=== PATIENT | female | born 1995 | race African-American/Black ===

== ENCOUNTER 2020-12-02 14:01 | Outpatient (REF) | payer OTHER, SELFPAY ==
[2020-12-02 17:05] LABS: Syphilis Screen Nonreactive (Nonreactive)
[2020-12-02 17:06] LABS: Thyroid Stimulating Hormone 1.02 uIU/mL (0.32-4.0)
[2020-12-03 04:37] LABS: HBc Num1 0.05 S/CO (0.00-0.79); HIV AB/AG Nonreactive (Nonreactive); HIV Num 1 0.06 S/CO (0.00-0.99); Hepatitis B Core Antibody Nonreactive (Nonreactive)
[2020-12-03 04:39] LABS: ~HepC Num1 0.07 S/CO (0.00-0.79); ~Hepatitis C Antibody Nonreactive (Nonreactive)
[2020-12-03 06:47] LABS: DHEA Sulfate 228 mcg/dL (18-391)
[2020-12-03 08:21] LABS: Prolactin 18.7 ng/mL
[2020-12-04 09:48] LABS: C. trachomatis RNA TMA NOT DETECTED (NOT DETECTED); N. gonorrhoeae RNA TMA NOT DETECTED (NOT DETECTED)
[2020-12-08 11:21] LABS: Testosterone, Free 3.1 pg/mL (0.1-6.4); Testosterone, Total 57 ng/dL (2-45)
== END 2020-12-02 14:02 | disposition home or self-care (01) ==
LOC: HO.LAB 14:01
PROVIDERS: PCP Internal Medicine; Visit Provider Advanced Practice Midwife
DX: N92.6 Irregular menstruation, unspecified (principal); E28.2 Polycystic ovarian syndrome; Z20.2 Contact with and (suspected) exposure to infections with a predominantly sexual mode of transmission; Z91.410 Personal history of adult physical and sexual abuse
CPT/HCPCS: 36415; 82627; 83498; 84146; 84402; 84403; 84443; 86704; 86780; 86803; 87389; 87491; 87591; 99202

== ENCOUNTER → 2020-12-09 14:09 | Outpatient (BNVA) | payer OTHER, SELFPAY | PROVIDERS: PCP Internal Medicine; Visit Provider Advanced Practice Midwife ==

== ENCOUNTER → 2020-12-12 12:57 | Outpatient (BNVA) | payer OTHER, SELFPAY | PROVIDERS: PCP Internal Medicine; Visit Provider Internal Medicine | DX: R79.89 Other specified abnormal findings of blood chemistry (principal); E55.9 Vitamin D deficiency, unspecified; N92.6 Irregular menstruation, unspecified | CPT/HCPCS: 99202 ==

== ENCOUNTER 2020-12-13 09:24 | Outpatient (REF) | payer OTHER, SELFPAY | END 2020-12-13 09:25 | disposition home or self-care (01) | LOC: HO.LAB 09:24 | PROVIDERS: PCP Internal Medicine; Visit Provider Internal Medicine | DX: Z13.89 Encounter for screening for other disorder (principal) ==

== ENCOUNTER 2020-12-16 07:56 | Outpatient (REF) | payer OTHER, SELFPAY ==
[2020-12-16 09:08] LABS: Glucose Fasting 82 mg/dL (60-99)
[2020-12-16 09:09] LABS: Estimated Average Glucose 97 mg/dL
[2020-12-16 09:19] LABS: Alanine Aminotransferase 22 U/L (0-31); Albumin Level 4.4 g/dL (3.5-5.0); Alkaline Phosphatase 43 U/L (39-117); Anion Gap 11 (12-20); Aspartate Amino Transferase 41 U/L (5-31); Blood Urea Nitrogen 14 mg/dL (9-16); Calcium 9.3 mg/dL (8.4-10.2); Carbon Dioxide 26 mmol/L (22-29); Chloride 104 mmol/L (96-108); Cholesterol 125 mg/dL; Estimated Glomerular Filt Rate > 60; Glucose Random 82 mg/dL (60-115); HDL Cholesterol 52 mg/dL; LDL Cholesterol Calculated 64 mg/dl; Potassium 4.2 mmol/L (3.3-5.1); Sodium 137 mmol/L (135-145); Total Protein 7.1 g/dL (6.5-8.0); Triglycerides 45 mg/dL
[2020-12-16 09:31] LABS: Free T4 (Free Thyroxine) 1.02 ng/dL (0.71-1.85); HCG Quantitative < 2 mIU/mL; Thyroid Stimulating Hormone 1.46 uIU/mL (0.32-4.0); Vitamin D 25-OH Total 20.7 ng/mL (>30)
[2020-12-16 10:07] LABS: Glucose 1 Hour 108 mg/dL
[2020-12-16 11:18] LABS: Glucose 2 Hour 86 mg/dL
[2020-12-17 16:46] LABS: Adrenocorticotropic Hormone 17 pg/mL (6-50)
[2020-12-18 14:42] LABS: LDL Cholesterol Direct 61 mg/dL (<100)
[2020-12-18 15:51] LABS: Follicle Stimulating Hormone 3.7 mIU/mL; Lutenizing Hormone 5.1 mIU/mL
[2020-12-18 17:27] LABS: DHEA Sulfate 181 mcg/dL (18-391); Sex Hormone Binding Globulin 131 nmol/L (17-124)
[2020-12-19 19:22] LABS: Estradiol Ultra Sensitive 322 pg/mL
[2020-12-19 22:12] LABS: Androstenedione 210 ng/dL
[2020-12-21 00:12] LABS: Estradiol Free 5.08 pg/mL; Estradiol, Ultrasensitive 331 pg/mL
[2020-12-21 12:31] LABS: Testosterone, Free 3.5 pg/mL (0.1-6.4); Testosterone, Total 54 ng/dL (2-45)
== END 2020-12-16 07:57 | disposition home or self-care (01) ==
LOC: HO.LAB 07:56
PROVIDERS: PCP Internal Medicine; Visit Provider Internal Medicine
DX: N92.6 Irregular menstruation, unspecified (principal); E55.9 Vitamin D deficiency, unspecified
CPT/HCPCS: 36415; 80053; 80061; 82024; 82157; 82306; 82533; 82627; 82670; 82681; 83001; 83002; 83036; 83498; 83721; 84146; 84270; 84402; 84403; 84439; 84443; 84702

== ENCOUNTER 2020-12-18 11:11 | Outpatient (REF) | payer OTHER, SELFPAY ==
--- NOTE | ~2020-12-18 | XR_ITS ---
EXAMINATION: XR HAND, RIGHT CLINICAL INFORMATION: Pain right fourth finger COMPARISON: None TECHNIQUE: PA, lateral, and oblique views of the right hand. FINDINGS: There is no acute or healing fracture, dislocation, destructive process. The bony mineralization is normal. There is no destructive process. No periostitis. No joint narrowing or erosive change. No soft tissue swelling. XR/XR hand RT min 3V IMPRESSION: Normal right hand.
== END 2020-12-18 11:12 | disposition home or self-care (01) ==
LOC: HO.HMGCX 11:11
PROVIDERS: PCP Internal Medicine; Visit Provider Nurse Practitioner Family
DX: M79.644 Pain in right finger(s) (principal); S67.194A Crushing injury of right ring finger, initial encounter; X58.XXXA Exposure to other specified factors, initial encounter; Y93.9 Activity, unspecified; Y92.9 Unspecified place or not applicable; Y99.9 Unspecified external cause status
CPT/HCPCS: 73130

== ENCOUNTER 2021-02-03 09:12 | Outpatient (REF) | payer OTHER, SELFPAY ==
--- NOTE | ~2021-02-03 | US_ITS ---
EXAMINATION: US THYROID CLINICAL INFORMATION: Nontoxic goiter, unspecified. COMPARISON: None TECHNIQUE: Linear transducer garcia-scale and color Doppler examination with attention to the region of the thyroid. FINDINGS: SIZE: Measurements of the thyroid lobes and nodules are given in sagittal, anteroposterior and transverse dimensions respectively. Right Thyroid Lobe: 5.1 x 1.4 x 1.5 cm, volume 5.9 mL. Parenchyma: The gland echotexture is homogeneous. Thyroid vascularity is increased. Left Thyroid Lobe: 4.9 x 1.2 x 1.4 cm, volume 4.3 mL. Parenchyma: The gland echotexture is homogeneous. Thyroid vascularity is increased. Isthmus: 0.2 cm in maximum AP dimension. Estimated total number of nodules greater than or equal to 1 cm: 1. Miniature Train Driver nodules are described as follows: 1. Location: Left lower pole. Size: 1.1 x 0.7 x 0.9 cm, volume 0.33 mL. Nodule characteristics: Composition: Mixed cystic and solid (1). Echogenicity: Isoechoic (1). Shape: Not taller than wide (0). Margins: Smooth (0). Echogenic Foci: Punctate echogenic foci (3). ACR TI-RADS total points: 5 ACR TI-RADS category: 4 NODES: No lymphadenopathy is seen in the tissue surrounding the thyroid gland. US/US thyroid IMPRESSION: Solitary thyroid nodule. Ultrasound follow-up as described below recommended. ACR TI-RADS RECOMMENDATION REFERENCE: Ultrasound-guided fine-needle aspiration, followup ultrasound, no further follow up. * TR1 (0 point) and TR 2 (2 points): No FNA or follow up * TR3 (3 points): FNA if more than or equal to 2.5 cm in maximum dimension, followup ultrasound in 1, 3 and 5 years if 1.5 to 2.4 cm in maximum dimension. * TR4 (4-6 points): FNA if more than or equal to 1.5 cm in maximum dimension, followup ultrasound in 1, 2, 3 and 5 years if 1 to 1.4 cm in maximum dimension. * TR5 (more than or equal to 7 points): FNA if more than or equal to 1 cm in maximum dimension, followup ultrasound every year for 5 years if 0.5 to 0.9 cm in maximum dimension. * TR3, TR4 or TR5 nodules that are below the size threshold for follow up receive no follow up.
[2021-02-03 11:46] LABS: Hematocrit 39.3 % (37-47); Hemoglobin 12.8 g/dl (12.0-16.0); Mean Corpuscular HGB Conc 32.6 g/dl (31.0-35.0); Mean Corpuscular Hemoglobin 27.9 pg (27.0-33.0); Mean Corpuscular Volume 85.8 fL (80-98); Mean Platelet Volume 11.4 fL (9.4-12.3); Platelet Count 262 X10*3/uL (160-400); Red Blood Count 4.58 X10*6/uL (4.20-5.50); Red Cell Distribution Width 11.8 % (11.0-16.0)
[2021-02-03 11:58] LABS: White Blood Count 2.3 X10*3/uL (4.8-10.8)
[2021-02-03 12:45] LABS: Atypical Lymph Absolute Manual 0.1 x10*3/uL; Atypical Lymphs Percent Manual 3 % (0-6); Band Neutrophils Percent 3 % (3-5); Lymphocytes Absolute Manual 1.2 X10*3/uL (0.6-4.8); Lymphocytes Percent Manual 51 % (20-40); Monocytes Absolute Manual 0.3 X10*3/uL (0.0-1.2); Monocytes Percent Manual 15 % (2-11); Neutrophils Absolute Manual 0.7 X10*3/uL (2.2-7.9); Neutrophils Percent Manual 28 % (45-73)
[2021-02-03 12:46] LABS: Acanthocytes 1+ (0-2) /OIF; Hypochromasia 1+ (5-14) /OIF; Platelet Estimate NORMAL (NORMAL); Platelet Morphology Comment NORMAL; RBC Morphology NORMAL
== END 2021-02-03 09:13 | disposition home or self-care (01) ==
LOC: HO.HMGCX 09:12
PROVIDERS: PCP Internal Medicine; Visit Provider Internal Medicine
DX: E04.9 Nontoxic goiter, unspecified (principal); E28.1 Androgen excess; E28.2 Polycystic ovarian syndrome; N92.6 Irregular menstruation, unspecified; D72.810 Lymphocytopenia; E55.9 Vitamin D deficiency, unspecified
CPT/HCPCS: 36415; 76536; 85007; 85025; 85027

== ENCOUNTER 2021-02-07 13:02 | Outpatient (REF) | payer OTHER, SELFPAY ==
[2021-02-07 13:37] LABS: Basophils Percent Auto 0.4 % (0-2); Eosinophils Percent Auto 1.8 % (0-4); Hematocrit 39.1 % (37-47); Hemoglobin 12.8 g/dl (12.0-16.0); Lymphocytes Absolute Auto 1.1 X10*3/uL (1.2-4.9); Lymphocytes Percent Auto 46.5 % (20-40); MANUAL DIFF FLAG SCAN; Mean Corpuscular HGB Conc 32.7 g/dl (31.0-35.0); Mean Corpuscular Hemoglobin 27.8 pg (27.0-33.0); Mean Corpuscular Volume 84.8 fL (80-98); Mean Platelet Volume 10.6 fL (9.4-12.3); Monocytes Absolute Auto 0.4 X10*3/uL (0.1-1.2); Monocytes Percent Auto 15.5 % (2-11); Neutrophils Absolute Auto 0.8 X10*3/uL (2.0-8.3); Neutrophils Percent Auto 35.8 % (45-73); Platelet Count 281 X10*3/uL (160-400); Red Blood Count 4.61 X10*6/uL (4.20-5.50); Red Cell Distribution Width 11.8 % (11.0-16.0); SCAN SMEAR FLAG 1
[2021-02-07 13:40] LABS: White Blood Count 2.3 X10*3/uL (4.8-10.8)
[2021-02-07 14:30] LABS: SLIDE REVIEW VERIFIED
[2021-02-11 13:12] LABS: TS Negative Control Passed; TS Panel A 0; TS Panel B 0; TS Positive Control Passed; TSpotTB Negative (SeeBelow)
== END 2021-02-07 13:03 | disposition home or self-care (01) ==
LOC: HO.LAB 13:02
PROVIDERS: PCP Internal Medicine; Visit Provider Internal Medicine
DX: Z11.1 Encounter for screening for respiratory tuberculosis (principal); D72.819 Decreased white blood cell count, unspecified; R53.83 Other fatigue
CPT/HCPCS: 36415; 85025; 86481

== ENCOUNTER → 2021-03-17 11:42 | Outpatient (BNVA) | payer OTHER, SELFPAY | PROVIDERS: PCP Internal Medicine; Visit Provider Internal Medicine ==

== ENCOUNTER 2021-05-15 09:00 | Outpatient (REF) | payer OTHER, SELFPAY ==
--- NOTE | 2021-05-15 09:28 | P.BOP_ITS ---
Brief Operative Note Date of Service: 05/15/21 Pre-op diagnosis: Thyroid Nodule Post-op diagnosis: same Procedure: This is doctor Leidy Bahena. This is an ultrasound-guided fine-needle aspiration report. Date of Examination: 05/15/2021 Indication: Multinodular Thyroid Porcedure: Procedure was explained to the patient. Alternatives, the risk and benefits were discussed. Written consent was obtained. A time-out was also obtained. After sterile preparation, fine-needle aspiration of 1.0 cm Left mid pole thyroid nodule was performed using direct ultrasound guidance to confirm accurate needle placement. Four aspirations were made using 27 gauge needles. Samples were submitted for cytology. 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 The patient tolerated the procedure well. Aftercare instructions were provided. Impression: Uncomplicated fine needle aspiration biopsy of a left mid pole 1.0 cm thyroid nodule under ultrasound guidance. Surgeon: Leidy Bahena, DO Was an Manager Of Financial Reporting used for this Procedure?: No Estimated blood loss (mL): 0
[2021-05-15 10:54] LABS: Alanine Aminotransferase 9 U/L (0-31); Albumin Level 4.5 g/dL (3.5-5.0); Alkaline Phosphatase 44 U/L (39-117); Aspartate Amino Transferase 11 U/L (5-31); Bilirubin Direct 0.5 mg/dL (0.0-0.5); Bilirubin Total 1.3 mg/dL (0.0-1.0); Total Protein 7.3 g/dL (6.5-8.0)
[2021-05-15] MEDS: Lidocaine HCl 1 % MPF 5 ML VIAL SUBCUT (11:12)
== END 2021-05-15 09:01 | disposition home or self-care (01) ==
LOC: HO.US 09:00
PROVIDERS: PCP Internal Medicine; Visit Provider Internal Medicine
DX: E04.1 Nontoxic single thyroid nodule (principal); R79.89 Other specified abnormal findings of blood chemistry; Z20.2 Contact with and (suspected) exposure to infections with a predominantly sexual mode of transmission
CPT/HCPCS: 10005; 36415; 80076; 88172; 88173

== ENCOUNTER 2021-05-19 11:11 | Outpatient (REF) | payer OTHER, SELFPAY ==
[2021-05-19 12:22] LABS: Alanine Aminotransferase 11 U/L (0-31); Albumin Level 4.5 g/dL (3.5-5.0); Alkaline Phosphatase 45 U/L (39-117); Aspartate Amino Transferase 13 U/L (5-31); Bilirubin Direct 0.5 mg/dL (0.0-0.5); Bilirubin Total 1.3 mg/dL (0.0-1.0); Total Protein 7.2 g/dL (6.5-8.0)
== END 2021-05-19 11:12 | disposition home or self-care (01) ==
LOC: HO.LAB 11:11
PROVIDERS: PCP Internal Medicine; Visit Provider Internal Medicine
DX: R79.89 Other specified abnormal findings of blood chemistry (principal)
CPT/HCPCS: 36415; 80076

== ENCOUNTER → 2021-05-26 11:30 | Outpatient (BNVA) | payer OTHER, SELFPAY | PROVIDERS: PCP Internal Medicine; Visit Provider Internal Medicine ==

== ENCOUNTER → 2021-09-02 14:48 | Outpatient (BNVA) | payer OTHER, SELFPAY | PROVIDERS: PCP Internal Medicine; Referring Provider Internal Medicine; Visit Provider Internal Medicine Gastroenterology | DX: E80.6 Other disorders of bilirubin metabolism (principal) | CPT/HCPCS: 99202 ==

== ENCOUNTER 2021-10-07 10:34 | Outpatient (REF) | payer OTHER, SELFPAY ==
--- NOTE | ~2021-10-07 | US_ITS ---
EXAMINATION: US COMPLETE ABDOMEN WITH LIVER ELASTOGRAPHY CLINICAL INFORMATION: Abnormal LFTs, left upper quadrant pain. COMPARISON: None. TECHNIQUE: Real-time imaging of the abdominal viscera. Noninvasive ultrasound liver fibrosis assessment is performed using Masoud ElastPQ point quantification shear wave elastography (2D-SWE) with a C5-2 MHz transducer. Multiple elastography samples are obtained. FINDINGS: PANCREAS: The visualized pancreatic head and body are normal in appearance. The remainder of the pancreas is obscured from visualization by the overlying bowel gas. ABDOMINAL AORTA: The proximal, middle, and distal aortic segments are normal in caliber. INFERIOR VENA CAVA: Visualized portions are normal. LIVER: Normal. The liver demonstrates normal size, contour and echogenicity. No focal lesion or intrahepatic biliary duct dilatation. The right lobe measures 14.5 cm in length. The left lobe measures 10.5 cm in length. Portal flow is hepatopedal. Shear wave liver elastography median stiffness is 1.09 m/s (reference: normal median stiffness is 1.3 m/s or less). IQR/median stiffness to assess sampling precision is 0.17 (reference: good quality data set is IQR/median stiffness of 0.15 or less). GALLBLADDER: Normal. The gallbladder is physiologically distended without evidence of stones, sludge, polyps, wall thickening or pericholecystic fluid. COMMON BILE DUCT: Normal in caliber measuring 0.3 cm in diameter. RIGHT KIDNEY: Normal. No hydronephrosis. No renal calculi or focal parenchymal lesions. The kidney measures 10.6 cm in maximum dimension. LEFT KIDNEY: Normal. No hydronephrosis. No renal calculi or focal parenchymal lesions. The kidney measures 10.9 cm in maximum dimension. SPLEEN: Normal. The spleen measures 9.5 cm in maximum dimension. FREE FLUID: None. US/US abdomen comp w elastography IMPRESSION: 1. Unremarkable complete abdomen ultrasound. 2. Liver Elastography: Liver elastography measures 1.09 m/s, suggestive of high probability normal value. REFERENCE: Society of Radiologists in Ultrasound Liver Stiffness Thresholds (2020): LIVER STIFFNESS THRESHOLDS: *Liver Stiffness equal or less than 1.3 m/s: High probability of being normal. *Liver Stiffness less than 1.7 m/s: In the absence of other known clinical signs, rules out compensated advanced chronic liver disease. *Liver Stiffness 1.7-2.1 m/s: Suggestive of compensated advanced chronic liver disease but need further test for confirmation. *Liver Stiffness over 2.1 m/s: Rules in compensated advanced chronic liver disease. *Liver Stiffness over 2.4 m/s: Suggestive of clinically significant portal hypertension. QUALITY OF DATA SET: *IQR/Median value equal or less than 0.15 implies a quality data set. *IQR/Median value over 0.15 implies a poor quality data set. SIGNIFICANT CHANGE FROM PRIOR EXAM: Significant change if liver stiffness measurement is 10% or greater from prior exam. OTHER CONSIDERATIONS: The stage of liver fibrosis may be overestimated in the setting of acute hepatitis, liver inflammation, elevated liver function tests, hepatic vascular congestion, obstructive cholestasis, non-fasting state, and infiltrative diseases such as amyloidosis and lymphoma. In some patients with NAFLD, the liver stiffness thresholds for compensated advanced chronic liver disease may be lower. In causes other than viral hepatitis and NAFLD, liver stiffness thresholds are not well established.
== END 2021-10-07 10:35 | disposition home or self-care (01) ==
LOC: HO.US 10:34
PROVIDERS: Visit Provider Internal Medicine Gastroenterology
DX: E80.6 Other disorders of bilirubin metabolism (principal)
CPT/HCPCS: 76705; 76981

== ENCOUNTER → 2022-01-16 11:07 | Outpatient (BNVA) | payer OTHER, SELFPAY | PROVIDERS: PCP Internal Medicine; Referring Provider Internal Medicine; Visit Provider Internal Medicine Gastroenterology | DX: Z13.89 Encounter for screening for other disorder (principal) ==

== ENCOUNTER 2022-01-19 15:38 | Outpatient (REF) | payer OTHER, SELFPAY ==
[2022-01-19 16:00] LABS: MANUAL DIFF FLAG NO
[2022-01-19 16:25] LABS: Basophils Percent Auto 0.3 % (0-2); Eosinophils Percent Auto 0.6 % (0-4); Hematocrit 37.6 % (37.0-47.0); Hemoglobin 12.2 g/dl (12.0-16.0); Imm Gran Abs Auto 0.01 X10*3/uL (0.00-0.03); Imm Gran Pct Auto 0.3 % (0.0-0.4); Lymphocytes Absolute Auto 1.4 X10*3/uL (1.2-4.9); Lymphocytes Percent Auto 38.4 % (20-40); Mean Corpuscular HGB Conc 32.4 g/dl (31.0-35.0); Mean Corpuscular Volume 86.4 fL (80.0-98.0); Mean Platelet Volume 10.9 fL (9.4-12.3); Monocytes Absolute Auto 0.4 X10*3/uL (0.1-1.2); Monocytes Percent Auto 12.3 % (2-11); Neutrophils Absolute Auto 1.7 x10*3/uL (2.0-8.3); Neutrophils Percent Auto 48.1 % (45-73); Platelet Count 251 X10*3/uL (160-400); Red Blood Count 4.35 X10*6/uL (4.20-5.50); Red Cell Distribution Width 11.9 % (11.0-16.0); White Blood Count 3.6 X10*3/uL (4.8-10.8)
[2022-01-19 16:50] LABS: Alanine Aminotransferase 7 U/L (0-31); Albumin Level 4.2 g/dL (3.5-5.0); Alkaline Phosphatase 51 U/L (39-117); Anion Gap 11 (12-20); Aspartate Amino Transferase 11 U/L (5-31); Bilirubin Total 0.9 mg/dL (0.0-1.0); Blood Urea Nitrogen 18 mg/dL (9-16); C Reactive Protein 0.04 mg/dL (< or = 0.50); Calcium 9.2 mg/dL (8.4-10.2); Carbon Dioxide 27 mmol/L (22-29); Chloride 106 mmol/L (96-108); Estimated Glomerular Filt Rate > 60; Glucose Random 96 mg/dL (60-115); Potassium 4.5 mmol/L (3.3-5.1); Sodium 139 mmol/L (135-145); Total Protein 6.8 g/dL (6.5-8.0)
[2022-01-19 17:13] LABS: Ferritin 22 ng/mL (10-122); TSH reflex Free T4 1.16 uIU/mL (0.32-4.0)
[2022-01-19 17:26] LABS: Folate 6.3 ng/mL (> or = 4.0); Vitamin B12 479 pg/mL (200-900)
[2022-01-19 17:45] LABS: Erythrocyte Sedimentation Rate 3 MM/HR (0-20)
[2022-01-21 14:21] LABS: IgA 186 mg/dL (47-310); IgG 985 mg/dL (600-1640); IgM 65 mg/dL (50-300)
[2022-01-21 21:17] LABS: Transglutaminase Ab IgG <1.0 U/mL; Transglutaminase IgA <1.0 U/mL
[2022-01-23 02:16] LABS: Zinc 54 mcg/dL (60-130)
[2022-01-26 12:51] LABS: Gliadin Deamidated IgA Ab <1.0 U/mL; Gliadin Deamidated IgG Ab <1.0 U/mL
== END 2022-01-19 15:39 | disposition home or self-care (01) ==
LOC: HO.LAB 15:38
PROVIDERS: PCP Internal Medicine; Visit Provider Internal Medicine Gastroenterology
DX: R10.33 Periumbilical pain (principal); R19.7 Diarrhea, unspecified; K75.81 Nonalcoholic steatohepatitis (NASH); G89.29 Other chronic pain; R19.8 Other specified symptoms and signs involving the digestive system and abdomen
CPT/HCPCS: 36415; 80053; 82180; 82607; 82728; 82746; 82784; 83520; 84443; 84630; 85025; 85652; 86140; 86258; 86364

== ENCOUNTER 2022-01-21 | Outpatient (REF) | payer OTHER, SELFPAY ==
[2022-01-22 16:57] LABS: CDiff Gene PCR NEGATIVE (Negative)
[2022-01-28 11:21] LABS: Fecal Fat Qualitative NORMAL (NORMAL)
[2022-01-29 17:36] LABS: Pancreatic Elastase-1 >500 mcg/g
[2022-01-31 20:51] LABS: Lactoferrin, Fecal, Quant. <30.0 mcg/mL
== END 2022-01-21 00:01 | disposition home or self-care (01) ==
LOC: HO.LNP
PROVIDERS: Visit Provider Internal Medicine Gastroenterology
DX: R19.8 Other specified symptoms and signs involving the digestive system and abdomen (principal)
CPT/HCPCS: 82656; 82705; 83631; 87329; 87493

== ENCOUNTER 2022-01-22 14:41 | Outpatient (REF) | payer OTHER, SELFPAY ==
[2022-01-27 11:11] LABS: Vitamin C 0.9 mg/dL (0.3-2.7)
== END 2022-01-22 14:42 | disposition home or self-care (01) ==
LOC: HO.LAB 14:41
PROVIDERS: PCP Internal Medicine; Visit Provider Internal Medicine Gastroenterology
DX: R19.8 Other specified symptoms and signs involving the digestive system and abdomen (principal)
CPT/HCPCS: 82180

== ENCOUNTER 2022-02-17 09:04 | Outpatient (REF) | payer OTHER, SELFPAY ==
[2022-02-17 11:59] LABS: Cholesterol 149 mg/dL; HDL Cholesterol 53 mg/dL; LDL Cholesterol Calculated 87 mg/dl; Triglycerides 48 mg/dL
[2022-02-17 12:08] LABS: Vitamin D 25-OH Total 20.9 ng/mL (>30)
== END 2022-02-17 09:05 | disposition home or self-care (01) ==
LOC: HO.HMGCLDS 09:04
PROVIDERS: PCP Internal Medicine; Visit Provider Internal Medicine
DX: Z00.01 Encounter for general adult medical examination with abnormal findings (principal); E55.9 Vitamin D deficiency, unspecified
CPT/HCPCS: 36415; 80061; 82306

== ENCOUNTER 2022-03-02 09:08 | Outpatient (REF) | payer OTHER, SELFPAY | END 2022-03-02 09:09 | disposition home or self-care (01) | LOC: HO.LAB 09:08 | PROVIDERS: PCP Internal Medicine; Visit Provider Advanced Practice Midwife | DX: Z01.419 Encounter for gynecological examination (general) (routine) without abnormal findings (principal) | CPT/HCPCS: 88142 ==

== ENCOUNTER 2022-03-05 22:31 | Emergency (ER) | payer OTHER, SELFPAY ==
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
[2022-03-05 22:37] VITALS: BP 123/73; PULSE 72; RESP 18; O2SAT 100; BMI 20.2
[2022-03-05 23:03] LABS: COVID-19 Test Negative (Negative); IDNOW Serial# 55D5AD1C
== END 2022-03-05 23:59 | disposition home or self-care (01) ==
PROVIDERS: Emergency Provider Emergency Medicine; PCP Internal Medicine
DX: Z20.822 Contact with and (suspected) exposure to COVID-19 (principal)
CPT/HCPCS: 87635; 99282; 99283

== ENCOUNTER 2022-06-05 14:19 | Outpatient (REF) | payer OTHER, SELFPAY ==
--- NOTE | ~2022-06-05 | US_ITS ---
EXAMINATION: US THYROID CLINICAL INFORMATION: Nontoxic single thyroid nodule. COMPARISON: Ultrasound soft tissue head/neck thyroid dated 02/03/2021. TECHNIQUE: Linear transducer grayscale and color Doppler examination with attention to the region of the thyroid. FINDINGS: SIZE: Measurements of the thyroid lobes and nodules are given in sagittal, anteroposterior and transverse dimensions respectively. Right Thyroid Lobe: 5.5 x 1.3 x 1.6 cm, volume 6.0 mL. Previously 5.1 x 1.4 x 1.5 cm, volume 5.9 mL. Parenchyma: The gland echotexture is homogeneous. Thyroid vascularity is mildly increased. Left Thyroid Lobe: 4.0 x 1.3 x 1.6 cm, volume 4.4 mL. Previously 4.9 x 1.2 x 1.4 cm, volume 4.3 mL. Parenchyma: The gland echotexture is homogeneous. Thyroid vascularity is normal. Isthmus: 0.2 cm in maximum AP dimension. Previously 0.2 cm. Estimated total number of nodules greater than or equal to 1 cm: 0. Resource Teacher nodules are described as follows: 1. Location: Left inferior. Size: 0.7 x 0.7 x 0.9 cm, volume 0.24 mL. Previously: 1.1 x 0.7 x 0.9 cm, volume 0.33 mL. Nodule characteristics: Composition: Solid/almost completely solid (2). Echogenicity: Isoechoic (1). Shape: Not taller than wide (0). Margins: Smooth (0). Echogenic Foci: None (0). ACR TI-RADS total points: 3 Previous: 5 ACR TI-RADS category: 3 Previous: 4 Significant change in size (>/= 20% in 2 dimensions and minimal increase of 2 mm or 50% or greater increase in volume): Decreased in size Change in features: No Change in ACR TI-RADS risk category: Yes but decreasing category NODES: No lymphadenopathy is seen in the tissue surrounding the thyroid gland. US/US thyroid IMPRESSION: Slightly hypervascular right lobe. Interval decrease in size left thyroid nodule January 2021. ACR TI-RADS RECOMMENDATION REFERENCE: Ultrasound-guided fine-needle aspiration, followup ultrasound, no further follow up. * TR1 (0 point) and TR 2 (2 points): No FNA or follow up * TR3 (3 points): FNA if more than or equal to 2.5 cm in maximum dimension, followup ultrasound in 1, 3 and 5 years if 1.5 to 2.4 cm in maximum dimension. * TR4 (4-6 points): FNA if more than or equal to 1.5 cm in maximum dimension, followup ultrasound in 1, 2, 3 and 5 years if 1 to 1.4 cm in maximum dimension. * TR5 (more than or equal to 7 points): FNA if more than or equal to 1 cm in maximum dimension, followup ultrasound every year for 5 years if 0.5 to 0.9 cm in maximum dimension. * TR3, TR4 or TR5 nodules that are below the size threshold for follow up receive no follow up.
[2022-06-05 17:10] LABS: Free T4 (Free Thyroxine) 0.99 ng/dL (0.71-1.85)
== END 2022-06-05 14:20 | disposition home or self-care (01) ==
LOC: HO.HMGCX 14:19
PROVIDERS: PCP Internal Medicine; Visit Provider Internal Medicine
DX: E04.1 Nontoxic single thyroid nodule (principal)
CPT/HCPCS: 36415; 76536; 84439; 84443

== ENCOUNTER 2023-02-18 09:08 | Outpatient (REF) | payer OTHER, SELFPAY ==
[2023-02-18 11:45] LABS: Alanine Aminotransferase 7 U/L (0-31); Aspartate Amino Transferase 12 U/L (5-31); Cholesterol 159 mg/dL; Glucose Fasting 81 mg/dL (60-99); HDL Cholesterol 54 mg/dL; LDL Cholesterol Calculated 97 mg/dl; Triglycerides 44 mg/dL
[2023-02-18 12:08] LABS: TSH reflex Free T4 0.99 uIU/mL (0.32-4.0); Vitamin D 25-OH Total 23.8 ng/mL (>30)
== END 2023-02-18 09:09 | disposition home or self-care (01) ==
LOC: HO.HMGCLDS 09:08
PROVIDERS: PCP Internal Medicine; Visit Provider Internal Medicine
DX: Z00.01 Encounter for general adult medical examination with abnormal findings (principal); E04.1 Nontoxic single thyroid nodule; E55.9 Vitamin D deficiency, unspecified
CPT/HCPCS: 36415; 80061; 82306; 82947; 84443; 84450; 84460

== ENCOUNTER → 2023-03-05 10:03 | Outpatient (BNVA) | payer OTHER, SELFPAY | PROVIDERS: PCP Internal Medicine; Visit Provider Advanced Practice Midwife ==

== ENCOUNTER 2023-03-24 11:24 | Outpatient (REF) | payer OTHER, SELFPAY | END 2023-03-24 11:25 | disposition home or self-care (01) | LOC: HO.US 11:24 | PROVIDERS: PCP Internal Medicine; Visit Provider Internal Medicine | DX: E04.1 Nontoxic single thyroid nodule (principal) | CPT/HCPCS: 76536 ==

== ENCOUNTER 2023-09-06 14:46 | Outpatient (AMB) | payer OTHER, SELFPAY ==
[2023-09-06 14:47] VITALS: BP 92/64; PULSE 88; BMI 21.7
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
== END 2023-09-06 15:06 | disposition home or self-care (01) ==
PROVIDERS: PCP Internal Medicine; Visit Provider Internal Medicine Endocrinology, Diabetes & Metabolism
DX: E04.1 Nontoxic single thyroid nodule (principal)
CPT/HCPCS: 99213

== ENCOUNTER → 2023-09-06 14:46 | Outpatient (BNVA) | payer OTHER, SELFPAY | PROVIDERS: PCP Internal Medicine; Visit Provider Internal Medicine Endocrinology, Diabetes & Metabolism | DX: E04.1 Nontoxic single thyroid nodule (principal) | CPT/HCPCS: 99212 ==

== ENCOUNTER 2024-03-09 10:00 | Outpatient (AMB) | payer OTHER, SELFPAY ==
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
[2024-03-09 10:07] VITALS: BP 100/66; BMI 21.6
== END 2024-03-09 10:33 | disposition home or self-care (01) ==
LOC: HO.HWS 10:00
PROVIDERS: PCP Internal Medicine; Visit Provider Advanced Practice Midwife
DX: Z01.419 Encounter for gynecological examination (general) (routine) without abnormal findings (principal)
CPT/HCPCS: 99395

== ENCOUNTER → 2024-03-09 10:00 | Outpatient (BNVA) | payer OTHER, SELFPAY | PROVIDERS: PCP Internal Medicine; Visit Provider Advanced Practice Midwife | DX: Z01.419 Encounter for gynecological examination (general) (routine) without abnormal findings (principal) | CPT/HCPCS: 99395 ==

== ENCOUNTER 2024-06-01 14:50 | Outpatient (AMB) | payer OTHER, SELFPAY ==
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
[2024-06-01 14:59] VITALS: BP 102/70; PULSE 62; O2SAT 99; BMI 21.4
== END 2024-06-01 15:40 | disposition home or self-care (01) ==
PROVIDERS: PCP Internal Medicine; Visit Provider Internal Medicine
DX: Z00.00 Encounter for general adult medical examination without abnormal findings (principal); E55.9 Vitamin D deficiency, unspecified; E04.1 Nontoxic single thyroid nodule; K64.4 Residual hemorrhoidal skin tags
CPT/HCPCS: 99395

== ENCOUNTER 2024-06-08 10:43 | Outpatient (REF) | payer OTHER, SELFPAY ==
[2024-06-08 12:21] LABS: Cholesterol 133 mg/dL (<200); Glucose Fasting 78 mg/dL (60-99); HDL Cholesterol 56 mg/dL (>40); LDL Cholesterol Calculated 71 mg/dL (<100); Triglycerides 30 mg/dL (<150)
[2024-06-08 12:29] LABS: TSH reflex Free T4 1.01 uIU/mL (0.32-4.0); Vitamin D 25-OH Total 26.9 ng/mL (>30)
== END 2024-06-08 10:44 | disposition home or self-care (01) ==
LOC: HO.LAB 10:43
PROVIDERS: PCP Internal Medicine; Visit Provider Internal Medicine
DX: Z00.01 Encounter for general adult medical examination with abnormal findings (principal); E55.9 Vitamin D deficiency, unspecified; E04.1 Nontoxic single thyroid nodule; Z13.220 Encounter for screening for lipoid disorders
CPT/HCPCS: 36415; 80061; 82306; 82947; 84443

== ENCOUNTER 2024-07-06 14:27 | Outpatient (AMB) | payer OTHER, SELFPAY ==
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
[2024-07-06 14:58] VITALS: BP 108/60; PULSE 59; O2SAT 99; BMI 21.4
== END 2024-07-06 15:26 | disposition home or self-care (01) ==
PROVIDERS: PCP Internal Medicine; Visit Provider Physician Assistant
DX: M26.622 Arthralgia of left temporomandibular joint (principal)

== ENCOUNTER → 2024-07-06 14:27 | Outpatient (BNVA) | payer OTHER, SELFPAY | PROVIDERS: PCP Internal Medicine; Visit Provider Physician Assistant | DX: M26.622 Arthralgia of left temporomandibular joint (principal) | CPT/HCPCS: 99212 ==